=== PATIENT | female | born 1985 | race African-American/Black ===

== ENCOUNTER 2016-05-12 13:39 | Emergency (ER) | payer OTHER ==
[2016-05-12 13:51] VITALS: BP 123/51; PULSE 81; TEMP 98.2; BMI 25.0
--- NOTE | 2016-05-12 14:36 | PDOC ---
History of Present Illness - General Chief Complaint: Injury Stated Complaint: INJURY Time Seen by Provider: 05/12/16 13:59 History Source: Patient Exam Limitations: No Limitations - History of Present Illness Initial Comments: 05/12/16 14:29 30 yr female with c/o pain to the left 5th fingernail after getting it stuck in a box yesterday at work. Occurred: reports: yesterday Past History - Past Medical History Allergies/Adverse Reactions: Allergies Allergy/AdvReac Type Severity Reaction Status Date / Time peanut Allergy Verified 05/12/16 13:47 Home Medications: Ambulatory Orders Cephalexin [Keflex] 250 mg PO QID #20 capsule 05/12/16 Asthma: Yes - Psycho/Social/Smoking Cessation Hx Suicidal Ideation: No Smoking Status: No Smoking History: Never smoked Number of Cigarettes Smoked Daily: 0 Trauma Specific PMHX - Complaint Specific PMHX Arthritis: No Back Injury: No Neck Injury: No Hx Sacro Iliac Joint Dysfunction: No Review of Systems - Review of Systems Able to Perform ROS?: Yes Is the patient limited Slovenian proficient: No Constitutional: No: Symptoms Reported HEENTM: No: Symptoms Reported Respiratory: No: Symptoms reported Cardiac (ROS): No: Symptoms Reported ABD/GI: No: Symptoms Reported : No: Symptoms Reported Musculoskeletal: No: Symptoms Reported Integumentary: No: Symptoms Reported Neurological: No: Symptoms reported *Physical Exam - Vital Signs Last Vital Signs Temp Pulse Resp BP Pulse Ox 98.2 F 81 19 123/51 98 05/12/16 13:47 05/12/16 13:47 05/12/16 13:47 05/12/16 13:47 05/12/16 13:47 - Physical Exam General Appearance: Yes: Nourished, Appropriately Dressed HEENT: positive: EOMI, SUDARSHAN Neck: positive: Supple Respiratory/Chest: positive: Lungs Clear, Normal Breath Sounds Cardiovascular: positive: Regular Rhythm, Regular Rate Musculoskeletal: positive: Normal Inspection Extremity: positive: Normal Capillary Refill, Tender (left fifth digit tender at distal tuft, no bleeding cuticle macerated , nail bed intact , nail intact ) ED Treatment Course - RADIOLOGY Radiology Studies Ordered: Category Date Time Status FINGER(S) LEFT [RAD] Stat Radiology 05/12/16 14:14 Taken Medical Decision Making - Medical Decision Making 05/12/16 14:38 cc: finger nail injury will xray to r/o fracture tetanus is UTD will clean and dress with sterile gauze and finger dressing po keflex as directed follow up with discussed with pt to return if any worsening symptoms 05/12/16 19:22 *DC/Admit/Observation/Transfer Diagnosis at time of Disposition: Fingernail injury Qualifiers: Encounter type: initial encounter Laterality: left Qualified Code(s): S69.92XA - Unspecified injury of left wrist, hand and finger(s), initial encounter - Discharge Dispostion Disposition: HOME Condition at time of disposition: Stable - Prescriptions Prescriptions: Cephalexin [Keflex] 250 mg PO QID #20 capsule - Referrals Referrals: Isael Whitmore MD [Staff Physician] - - Patient Instructions Additional Instructions: keep clean and dry wash once a day with soap and water dry completely and apply a thin layer of neosporin or bacitrcin ointment and keep covered take keflex as directed for 5 days take motrin as needed for any pain follow with the hand surgeon Dr. Whitmore for follow up return to ER for any worsening symtpoms, the nail will fall off on its own in about 3-4 weeks
[2016-05-12] MEDS ORDERED: IBUPROFEN 600 MG TABLET (FP) PO ONE ×2 (14:44→14:50)
== END 2016-05-12 14:52 | disposition home or self-care (01) ==
LOC: JERFT 13:39
DX: S69.82XA Other specified injuries of left wrist, hand and finger(s), initial encounter (principal); W23.1XXA Caught, crushed, jammed, or pinched between stationary objects, initial encounter; Y93.89 Activity, other specified; Y92.59 Other trade areas as the place of occurrence of the external cause; Y99.0 Civilian activity done for income or pay
CPT/HCPCS: 73140-TC-LT; 99281-25